=== PATIENT | female | born 2000 | race Caucasian/White ===

== ENCOUNTER 2025-09-28 00:04 | Emergency (ER) | payer OTHER, SELFPAY ==
[2025-09-28 00:15] VITALS: BP 134/94
[2025-09-28 00:37] LABS: HCG, Serum Qualitative Screen Negative
[2025-09-28 00:42] LABS: ALT (SGPT) 14 U/L (0-35); AST (SGOT) 19 U/L (14-36); Albumin 5.0 g/dl (3.5-5.0); Alkaline Phosphatase 78 U/L (38-126); Blood Urea Nitrogen 10 mg/dl (7-17); Calcium 9.7 mg/dl (8.4-10.2); Carbon Dioxide 25 mmol/L (22-30); Chloride 107 mmol/L (98-107); Estimated Creatinine Clearance > 125 ml/min; Glucose 96 mg/dl (70-99); Potassium 4.2 mmol/L (3.5-5.1); Sodium 139 mmol/L (135-145); Total Protein 8.3 g/dl (6.3-8.2); eGFR > 60.00
[2025-09-28 00:45] LABS: Hematocrit 37.0 % (37.0-47.0); Hemoglobin 13.1 g/dL (12.0-16.0); Mean Corp Hgb Conc. 35.4 g/dL (33.0-37.0); Mean Corpuscular Volume 87.5 fL (81.0-99.0); Nucleated Red Blood Cells % 0 %; Platelet Count 235 10^3/uL (130-400); Red Cell Dist. Width 11.9 % (11.5-14.5)
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
[2025-09-28 03:20] VITALS: BP 110/65
== END 2025-09-28 03:28 ==
LOC: EMR 00:04
PROVIDERS: EMERGENCY PHYSICIAN Emergency Medicine
DX: Z32.02 Encounter for pregnancy test, result negative (principal)
CPT/HCPCS: 99283; 80053; 84703; 85025